=== PATIENT | female | born 1985 | race Two or more races ===

== ENCOUNTER 2024-11-24 06:27 | Inpatient (IN) | payer MEDICAID ==
[~2024-11-24] VITALS: Ht 167.6 cm; Wt 90.7 kg
--- NOTE | 2024-11-24 06:52 | ED.PDOC ---
HPI (NEURO) HPI Comments 39 y/o F, with no prior neurological history, CRUZ presents to the ED for CC of s/p seizure. EMS reports, patient is coming from home where called d/t patient displaying tonic clonic seizure like activity while sleeping, lasting approximately 3-4 minutes. EMS relays, upon arrival to scene patient was found to be A&Ox2 to person and place only. Upon arrival to the ED, patient is A&Ox3 to person, place, and event; unable to recall year. Patient has left oral trama following, episode. Patient denies headache, nausea, vomiting, or incontinence. No other associated symptoms, modifiers, recent injuries or sick contacts present at this time. Time Seen by MD: 06:40 Reviewed Notes: Nurses Notes, Medications, Allergies Information Source: Patient Mode of Arrival: EMS Severity: Moderate Headache Severity: None Timing: Minutes Duration: Minutes Prehospital treatment: None Seizure Quality: Tonic-clonic Seizure Location: Generalized Onset: At rest Circumstances: Spontaneous Symptoms: None Before: Normal During: Trauma: Tongue After: Confusion History of: None Modifying factors: Nothing Associated Signs and Symptoms: None Past Medical History PAST MEDICAL HISTORY: Denies Surgical History: Denies all surgeries CONTENT DEVELOPMENT SPECIALIST History: No Pertinent CONTENT DEVELOPMENT SPECIALIST History Family History Family History: Unknown Social History Smoker: Non-Smoker Alcohol: Denies ETOH Use Drugs: Denies Drug Use Lives In: Home Constitutional: denies: chills, diaphoresis, fatigue, fever, malaise, sweats, weakness, others EENTM: denies: blurred vision, double vision, ear bleeding, ear discharge, ear drainage, ear pain, ear ringing, eye pain, eye redness, hearing loss, mouth pain, mouth swelling, nasal discharge, nose bleeding, nose congestion, nose pain, photophobia, tearing, throat pain, throat swelling, voice changes, others Respiratory: denies: cough, hemoptysis, orthopnea, SOB at rest, shortness of breath, SOB with excertion, stridor, wheezing, others Cardiovascular: denies: chest pain, dizzy spells, diaphoresis, Dyspnea on exertion, edema, irregular heart beat, left arm pain, lightheadedness, palpitations, PND, syncope, others Gastrointestinal: denies: abdomen distended, abdominal pain, blood streaked bowels, constipated, diarrhea, dysphagia, difficulty swallowing, hematemesis, melena, nausea, poor appetite, poor fluid intake, rectal bleeding, rectal pain, vomiting, others Genitourinary: denies: abnormal vagina bleeding, burning, dyspareunia, dysuria, flank pain, frequency, hematuria, incontinence, pain, , vagina discharge, urgency, others Neurological: reports: seizure; denies: dizziness, fainting, headache, left sided numbness, left sided weakness, numbness, paresthesia, pre-existing deficit, right sided numbness, right sided weakness, speech problems, tingling, tremors, weakness, others Musculoskeletal: denies: back pain, gout, joint pain, joint swelling, muscle pain, muscle stiffness, neck pain, others Integumetry: denies: bruises, change in color, change in hair/nails, dryness, laceration, lesions, lumps, rash, wounds, others Allergic/Immunocompromised: denies: Difficulty Healing, Frequent Infections, Hives, Itching, others Hematologic/Lymphatic: denies: anemia, blood clots, easy bleeding, easy bruising, swollen glands, others Endocrine: denies: excessive hunger, excessive sweating, excessive thirst, excessive urination, flushing, intolerance to cold, intolerance to heat, unexplained weight gain, unexplained weight loss, others Psychiatric: denies: anxiety, bipolar disorder, depression, hopeless, panic disorder, schizophrenia, sleepless, suicidal, others All Other Systems: Reviewed and Negative Physical Exam General Appearance: Moderate Distress HEENT: Normal ENT Inspection, Pharynx Normal, TMs Normal Neck: Full Range of Motion, Non-Tender, Normal, Normal Inspection Respiratory: Chest Non-Tender, Lungs Clear, No Accessory Muscle Use, No R espiratory Distress, Normal Breath Sounds Cardiovascular: No Edema, No JVD, No Murmur, No Gallop, Normal Peripheral Pulses, Regular Rate/Rhythm Breast Exam: Deferred Gastrointestinal: No Organomegaly, Non Tender, No Pulsatile Mass, Normal Bowel Sounds, Soft Genitalia: Deferred Pelvic: Deferred Rectal: Deferred Extremities: No calf tenderness, Normal capillary refill, Normal inspection, Normal range of motion, Non-tender, No pedal edema Musculoskeletal : Apperance: Normal Neurologic: Disoriented Cerebellar Function: NOT DONE Reflexes: NOT DONE Skin: Bruises (Left lateral aspect of the tongue) Peripheral Pulses: 3+ Radial (R), 3+ Radial (L) Lymphatic: No Adenopathy Was a procedure done? Was a procedure done?: No Differential Diagnosis (SZ) Seizure: Psychogenic Seizure, Closed Head Injury, CVA/TIA, Epilepsy-Break Through, Epilepsy-Status Headache: N/A X-Ray, Labs, Meds, VS Vital Signs Date Time Temp Pulse Resp B/P (MAP) Pulse Ox O2 Delivery O2 Flow Rate FiO2 11/24/24 08:00 98.5 75 18 120/79 (93) 98 98.5 11/24/24 07:30 75 18 98 Room Air* 0 21 11/24/24 07:03 88 12 97 Room Air* 0 21 11/24/24 07:01 97.9 88 12 120/79 (93) 97 97.9 11/24/24 06:30 97.7 90 16 128/81 (97) 98 97.7 Lab Test 11/24/24 06:56 Range/Units White Blood Count 6.0 4.4-10.8 10^3/uL Red Blood Count 4.72 4.0-5.20 10^6/uL Hemoglobin 13.8 12.2-16.2 g/dL Hematocrit 39.8 36.0-46.0 % Mean Corpuscular Volume 84.3 80.0-100.0 fL Mean Corpuscular Hemoglobin 29.3 28.0-32.0 pg Mean Corpuscular Hemoglobin Concent 34.7 32.0-36.0 g/dL Red Cell Distribution Width 15.0 H 11.8-14.3 % Platelet Count 275 140-450 10^3/uL Mean Platelet Volume 8.4 6.9-10.8 fL Neutrophils (%) (Auto) 55.8 37.0-80.0 % Lymphocytes (%) (Auto) 34.4 10.0-50.0 % Monocytes (%) (Auto) 6.3 0.0-12.0 % Eosinophils (%) (Auto) 3.1 0.0-7.0 % Basophils (%) (Auto) 0.4 0.0-2.0 % Neutrophils # (Auto) 3.3 1.6-8.6 10 ^3/uL Lymphocytes # (Auto) 2.1 0.4-5.4 10 ^3/uL Monocytes # (Auto) 0.4 0-1.3 10 ^3/uL Eosinophils # (Auto) 0.2 0-0.8 10 ^3/uL Basophils # (Auto) 0 0-0.2 10 ^3/uL Nucleated Red Blood Cells 0.1 % Sodium Level 139 136-145 mmol/L Potassium Level 4.0 3.5-5.1 mmol/L Chloride Level 103 98-107 mmol/L Carbon Dioxide Level 28 20-31 mmol/L Anion Gap 8 5-15 Blood Urea Nitrogen 8 L 9-23 mg/dL Creatinine 0.68 0.550-1.02 mg/dL Glomerular Filtration Rate Calc 113 >90 mL/min BUN/Creatinine Ratio 11.8 10.0-20.0 Serum Glucose 87 74-106 mg/dL Calcium Level 10.0 8.7-10.4 mg/dL Current Medications Medications (Trade) Dose Ordered Sig/Marily Route Start Time Stop Time Status Last Admin Sodium Chloride 1,000 ml @ 1,000 mls/hr Q1H ONCE IV 11/24/24 06:45 11/24/24 07:44 DC 11/24/24 07:50 Patient is slightly disoriented. No history of seizure. Moving all extremities. Vitals stable. Has a abrasion of the lateral aspect of the tongue. Has no recollection of why she is here. Possible dehydration. Establish intravenous access. Was given fluids. Reviewed her history. Explained to the patient. Continue monitoring. [place] [id number] Ph: [phone] DIAGNOSTIC IMAGING Diagnostic Imaging Report : [id number] Signed PATIENT: CHANTAL LAWSON ACCT: [id number] UNIT: [id number] : 1985 LOC: ER ROOM / BED: / AGE / SEX: 39 / F ADM STATUS: REG ER SERVICE [id number] ORDERING PHYSICIAN: MARIVEL ANDERSON MD PROCEDURE(s): HWOCT - HEAD WITHOUT CONTRAST REASON: seizure ORDER NUMBER(s): [id number], ACCESSION NUMBER(s): [id number] EXAM: CT HEAD WITHOUT CONTRAST INDICATION: seizure TECHNIQUE: CT of the head without intravenous contrast. Radiation Dose : 1. Head: CT Dose: CTDI volume is 53.51 mGy. Dose-length product is 966.66 mGy*cm The dose indicators for CT are the volume Computed Tomography (CT) Dose Index (CTDIvol) and the Dose Length Product (DLP), and are measured in units of mGy and mGy-cm, respectively. These indicators are not patient dose, but values generated from the CT scanner acquisition factors. The report includes radiation exposure data for exposures received during this examination. COMPARISON: None FINDINGS: There is no evidence of acute intracranial hemorrhage, extra-axial collection, mass effect, midline shift, herniation or hydrocephalus. The ventricles, sulci and cisterns are age appropriate. The proctor-white differentiation is intact. The visualized paranasal sinuses and mastoid air cells are clear. The surrounding soft tissues and osseous structures are unremarkable. IMPRESSION: No acute intracranial abnormality. Radiation optimization: All CT scans at this facility use at least one of these dose optimization techniques: automated exposure control mA and/or kV adjustment per patient size (includes targeted exams where dose is matched to clinical indication) or iterative reconstruction. ATED BY: SAM RUIZ MD DICTATED DATE/TIME: 11/24/24 0753 SIGNED BY: SAM RUIZ MD SIGNED DATE/TIME: 11/24/24 0753 CC: Time of 1ST Reevaluation: 07:10 Reevaluation 1ST: Unchanged Patient Education/Counseling: Diagnosis, Treatment Family Education/Counseling: No Family Present Departure 1 Departure Time of Disposition: 07:04 Impression: Primary Impression: Metabolic encephalopathy Additional Impression: Seizure Disposition: 09 ADMITTED INPATIENT Admit to: Med Surg Condition: Guarded Critical Care Note Critical Care Time?: Yes (90 min-critical care time only) Critical care comment: Monitor for seizure activity Stability Stability form required: No Heart Score Heart Score: Heart Score Response (Comments) Value History N/A 0 EKG N/A 0 Age N/A 0 Risk Factors N/A 0 Troponin N/A 0 Total 0 I personally scribed for MARIVEL ANDERSON MD ([email or web address]) on 11/24/24 at 06:52. Electronically submitted by Janene Varghese ([email or web address]). I personally scribed for MARIVEL ANDERSON MD ([email or web address]) on 11/24/24 at 08:17. Electronically submitted by Janene Varghese ([email or web address]). I personally scribed for MARIVEL ANDERSON MD ([email or web address]) on 11/24/24 at 08:19. Electronically submitted by Janene Varghese ([email or web address]). MARIVEL ANDERSON MD Nov 24, 2024 06:52
[2024-11-24 07:03] VITALS: PULSE 88; RESP 12; O2SAT 97
[2024-11-24 07:06] LABS: Hematocrit 39.8 % (36.0-46.0); Hemoglobin 13.8 g/dL (12.2-16.2); Mean Corpuscular Hemoglobin 29.3 pg (28.0-32.0); Mean Corpuscular Volume 84.3 fL (80.0-100.0); Nucleated Red Blood Cells % 0.1 %
[2024-11-24 07:17] LABS: Chloride 103 mmol/L (98-107); Potassium 4.0 mmol/L (3.5-5.1); Sodium 139 mmol/L (136-145)
[2024-11-24 07:18] LABS: Anion Gap 8 (5-15); Calcium 10.0 mg/dL (8.7-10.4); Carbon Dioxide 28 mmol/L (20-31)
[2024-11-24 07:23] LABS: BUN/Creatinine Ratio 11.8 (10.0-20.0); Glucose 87 mg/dL (74-106)
[2024-11-24 07:26] LABS: Blood Urea Nitrogen 8 mg/dL (9-23)
[2024-11-24 07:30] VITALS: PULSE 75; RESP 18; O2SAT 98
[2024-11-24] MEDS: SODIUM CHLORIDE 0.9% 1,000 ML IV ONE (07:50)
--- NOTE | 2024-11-24 07:55 | DVH ---
EXAM: CT HEAD WITHOUT CONTRAST INDICATION: seizure TECHNIQUE: CT of the head without intravenous contrast. Radiation Dose : 1. Head: CT Dose: CTDI volume is 53.51 mGy. Dose-length product is 966.66 mGy*cm The dose indicators for CT are the volume Computed Tomography (CT) Dose Index (CTDIvol) and the Dose Length Product (DLP), and are measured in units of mGy and mGy-cm, respectively. These indicators are not patient dose, but values generated from the CT scanner acquisition factors. The report includes radiation exposure data for exposures received during this examination. COMPARISON: None FINDINGS: There is no evidence of acute intracranial hemorrhage, extra-axial collection, mass effect, midline s hift, herniation or hydrocephalus. The ventricles, sulci and cisterns are age appropriate. The proctor-white differentiation is intact. The visualized paranasal sinuses and mastoid air cells are clear. The surrounding soft tissues and osseous structures are unremarkable. IMPRESSION: No acute intracranial abnormality. Radiation optimization: All CT scans at this facility use at least one of these dose optimization ivonne hniques: automated exposure control mA and/or kV adjustment per patient size (includes targeted exam s where dose is matched to clinical indication) or iterative reconstruction.
[2024-11-24] MEDS: LORazepam 2MG/ML-1ML VIAL IV ONE (08:42)
[2024-11-24] MEDS ORDERED: NITROGLYCERIN 0.4 MG SL TAB SL PRN (09:30)
[2024-11-24] MEDS ORDERED: ONDANSETRON HCL 4 MG/2 ML VIAL IV PRN (09:30)
[2024-11-24] MEDS ORDERED: LORazepam 2MG/ML-1ML VIAL IV PRN (09:30)
[2024-11-24] MEDS ORDERED: DOCUSATE SOD 100 MG CAP PO PRN (09:30)
--- NOTE | 2024-11-24 09:39 | DVHHP2 ---
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 according to ED records and patient states she was sleeping and per her he heard her grunting he rolled over to look at her and he saw her hands in the air and she was shaking he has tried to wake her up she did not respond he tried to pick her up she is still unresponsive she also had bitten her tongue where she had some mouth bleeding he he stated this lasted about 3-5 minutes and then finally she was slumped over unresponsive so they called 911 patient states she do not remember what happened when the event occurred but she does remember being in the ambulance some waking up in the ambulance. Patient denies any history of seizures she denies any family history seizures. When evaluating patient's labs and imaging from ED Ativan was given normal saline CBC was unremarkable BNP was unremarkable CT scan of the brain was unremarkable with these findings we will admit and ask for Neurology evaluation Past Medical History See HPI above Past Surgical History See HPI above Family History Reviewed, non-contributory to the management of this case. Past Social History Patient does vape she also drank heavy on Monday but denies daily drinking or drug use Review of Systems Constitutional: No: Fever, Chills, Sweats, Weakness, Malaise, Other Eyes: No: Pain, Vision change, Conjunctivae inflammation, Eyelid inflammation, Other, Redness ENT: No: Ear pain, Ear discharge, Nose pain, Nose discharge, Nose congestion, Mouth pain, Mouth swelling, Throat pain, Throat swelling, Other Respiratory: No: Cough, Dry, Shortness of breath, SOB with excertion, Wheezing, Hemoptysis, Pleuritic Pain, Sputum, Wheezing, Other Cardiovascular: No: Chest Pain, Palpitations, Orthopnea, Paroxysmal Noc. Dyspnea, Edema, Lt Headedness, Other Gastrointestinal: No: Nausea, Vomiting, Abdominal Pain, Diarrhea, Constipation, Melena, Hematochezia, Other Genitourinary: No Dysuria, No Frequency, No Incontinence, No Hematuria, No Retention, No Other Musculoskeletal: No: other, neck pain, shoulder pain, arm pain, back pain, hand pain, leg pain, foot pain Neurological: No: Weakness, Numbness, Incoordination, Change in speech, Confusion, Seizures, Other Allergies: Coded Allergies: NO KNOWN ALLERGIES (Unverified , 10/27/12) Exam Vital Signs Vital Signs Date Time Temp Pulse Resp B/P (MAP) Pulse Ox O2 Delivery O2 Flow Rate FiO2 11/24/24 08:00 98.5 75 18 120/79 (93) 98 98.5 11/24/24 07:30 Room Air* 0 21 General Appearance: Alert, Oriented X3, Cooperative, No acute distress HEENT: Atraumatic, PERRLA, EOMI, Mucous membr. moist/pink, Other (HEENT tounge on left side no open wound no drainage seen no swelling airway patent ) Respiratory: Clear to auscultation, Normal air movement Cardiovascular: Regular rate, Normal S1, Normal S2, No murmurs Abdominal: Normal bowel sounds, Soft, No tenderness, No hepatospenomegaly, No masses Extremities: No clubbing, No cyanosis, No edema, Normal pulses, No tenderness/swelling Skin: No rashes, No breakdown, No significant lesion Neuro: Normal speech, Strength at 5/5 X4 ext, Normal tone, Sensation intact, Cranial nerves 3-12 NL Psych/Mental Status: Mental status NL, Mood NL Labs/Xrays CT scan of the brain unremarkable I reviewed labs, imaging CT scan abdomen pelvis, EKG and all diagnostic studies on this patient from ED records and the medical chart Labs Test 11/24/24 06:56 Range/Units White Blood Count 6.0 4.4-10.8 10^3/uL Red Blood Count 4.72 4.0-5.20 10^6/uL Hemoglobin 13.8 12.2-16.2 g/dL Hematocrit 39.8 36.0-46.0 % Mean Corpuscular Volume 84.3 80.0-100.0 fL Mean Corpuscular Hemoglobin 29.3 28.0-32.0 pg Mean Corpuscular Hemoglobin Concent 34.7 32.0-36.0 g/dL Red Cell Distribution Width 15.0 H 11.8-14.3 % Platelet Count 275 140-450 10^3/uL Mean Platelet Volume 8.4 6.9-10.8 fL Neutrophils (%) (Auto) 55.8 37.0-80.0 % Lymphocytes (%) (Auto) 34.4 10.0-50.0 % Monocytes (%) (Auto) 6.3 0.0-12.0 % Eosinophils (%) (Auto) 3.1 0.0-7.0 % Basophils (%) (Auto) 0.4 0.0-2.0 % Neutrophils # (Auto) 3.3 1.6-8.6 10 ^3/uL Lymphocytes # (Auto) 2.1 0.4-5.4 10 ^3/uL Monocytes # (Auto) 0.4 0-1.3 10 ^3/uL Eosinophils # (Auto) 0.2 0-0.8 10 ^3/uL Basophils # (Auto) 0 0-0.2 10 ^3/uL Nucleated Red Blood Cells 0.1 % Sodium Level 139 136-145 mmol/L Potassium Level 4.0 3.5-5.1 mmol/L Chloride Level 103 98-107 mmol/L Carbon Dioxide Level 28 20-31 mmol/L Anion Gap 8 5-15 Blood Urea Nitrogen 8 L 9-23 mg/dL Creatinine 0.68 0.550-1.02 mg/dL Glomerular Filtration Rate Calc 113 >90 mL/min BUN/Creatinine Ratio 11.8 10.0-20.0 Serum Glucose 87 74-106 mg/dL Calcium Level 10.0 8.7-10.4 mg/dL SEPSIS Sepsis Screen Date sepsis recognized/suspect: Nov 24, 2024 Time Sepsis recognized/suspect: 729 Recent Procedure: No On Antibiotic Therapy: No Respiratory Rate >20: No Heart Rate >90: No Temp<36 C (96.8 F) or >38.3 C: No SBP <90 or MAP <65 mmHG: No New Acute Mental Status Change: No Is the patient on CPAP, BIPAP,: No Physician Orders Head Without Contrast (11/24/24 06:38) Urinalysis (11/24/24 06:38) Vital Signs Date Time Temp Pulse Resp B/P (MAP) Pulse Ox O2 Delivery O2 Flow Rate FiO2 11/24/24 08:00 98.5 75 18 120/79 (93) 98 98.5 11/24/24 07:30 75 18 98 Room Air* 0 21 11/24/24 07:03 88 12 97 Room Air* 0 21 11/24/24 07:01 97.9 88 12 120/79 (93) 97 97.9 11/24/24 06:30 97.7 90 16 128/81 (97) 98 97.7 Laboratory Tests Test 11/24/24 06:56 White Blood Count 6.0 10^3/uL (4.4-10.8) Medications Medications Dose Ordered Sig/Marily Route Start Time Stop Time Status Last Admin Dose Admin Lorazepam 0.5 mg ONCE ONCE IV 11/24/24 08:30 11/24/24 08:31 DC 11/24/24 08:42 0.5 MG Sodium Chloride 1,000 ml @ 1,000 mls/hr Q1H ONCE IV 11/24/24 06:45 11/24/24 07:44 DC 11/24/24 07:50 1,000 MLS/HR Assessment/Plan Assessment/Plan Acute metabolic encephalopathy likely from seizure activity CT scan of the brain negative Patient more alert on exam Seizure precautions new onset seizure activity Patient declines any seizure activity ordered Ativan as needed for seizure activity CT scan of brain is negative ordered Neurology consult ordered Keppra Seizure precautions ordered Urine drug screen ordered RPR, EtOH level, tsh acute gerds protonix vapes enc abstinence fen/ppx diet ivf lovenox scd plan admit to tele neurology consult and seizure precautions Plan discussed with: Patient Date of Service: Nov 24, 2024 Billing Provider: CARLENE BARNEY DNP Common Visit Codes: [id number] INP/OBS CARE (HIGH) CARLENE BARNEY DNP Nov 24, 2024 09:39
[2024-11-24] MEDS: SODIUM CHLORIDE 0.9% 1,000 ML IV SCH (10:00)
[2024-11-24] MEDS: PANTOPRAZOLE 40 MG/10 ML VIAL INJ IV ONE (10:04)
[2024-11-24] MEDS: levETIRAcetam 1000 mg/100ml 100 ML IV ONE (10:04)
[2024-11-24 16:27] LABS: Urine Protein, UAD Negative (Negative); Urine WBC Clumps PRESENT /hpf (None Seen)
[2024-11-24 16:57] LABS: Amphetamine Screen, Urine Neg (NEGATIVE); Barbiturate Scree,Urine Neg (NEGATIVE); Benzodiazephine Screen, Urine Neg (NEGATIVE); Cannabinoid Screen, Urine Neg (NEGATIVE); Cocaine Screen, Urine Neg (NEGATIVE); Opiate Scree,Urine Neg (NEGATIVE); Phencyclidine Screen, Urine Neg (NEGATIVE)
[2024-11-24 17:02] VITALS: BP 116/72; PULSE 70; PULSE 74; RESP 16; TEMP 98.6; O2SAT 100
[2024-11-24 20:00] VITALS: PULSE 84; RESP 19; O2SAT 100
[2024-11-24 21:00] VITALS: BP 129/76; PULSE 79; RESP 19; TEMP 98.2; O2SAT 100
[2024-11-24] MEDS: levETIRAcetam 1000 mg/100ml 100 ML IV SCH (21:10)
[2024-11-25] VITALS (9 sets, daily range): BP systolic 103–124; BP diastolic 64–75; PULSE 65–83; RESP 17–20; TEMP 97.7–98.3; O2SAT 97–100
[2024-11-25 07:24] LABS: Hematocrit 30.6 % (36.0-46.0); Hemoglobin 10.8 g/dL (12.2-16.2); Mean Corpuscular Hemoglobin 29.9 pg (28.0-32.0); Mean Corpuscular Volume 84.3 fL (80.0-100.0); Nucleated Red Blood Cells % 0.1 %
[2024-11-25 07:35] LABS: Alanine Aminotransferase < 9 U/L (7-40); Albumin 3.4 g/dL (3.2-4.8); Alkaline Phosphatase 39 U/L (46-116); Anion Gap 8 (5-15); BUN/Creatinine Ratio 9.6 (10.0-20.0); Bilirubin, Total 0.4 mg/dL (0.2-1.0); Blood Urea Nitrogen 5 mg/dL (9-23); Calcium 8.8 mg/dL (8.7-10.4); Carbon Dioxide 24 mmol/L (20-31); Chloride 110 mmol/L (98-107); Glucose 81 mg/dL (74-106); Potassium 3.6 mmol/L (3.5-5.1); Sodium 142 mmol/L (136-145); Total Protein 5.4 g/dL (5.7-8.2)
[2024-11-25] MEDS: PANTOPRAZOLE 40 MG/10 ML VIAL INJ IV SCH (11:08)
[2024-11-25] MEDS: HYDROcodone-ACET 5/325MG TAB PO PRN (11:40)
[2024-11-25] MEDS: SODIUM CHLORIDE 0.9% 1,000 ML IV SCH (11:45)
--- NOTE | 2024-11-25 11:47 | DVHPN2 ---
Progress Note Date Seen: Nov 25, 2024 Medical Necessity Reason Pt with a Central, PICC or Fol: No Subjective Patient reports: No new complaints Review of Systems: HEENT:Normal, CVS:Normal, RESPIRATORY:Normal, GI:Normal, :Normal, MSK:Normal, NEURO:Normal Objective vital signs Vital Sign Date Time Temp Pulse Resp B/P (MAP) Pulse Ox O2 Delivery O2 Flow Rate FiO2 11/25/24 09:00 98.1 76 20 103/65 (78) 98 98.1 11/25/24 08:00 Room Air* 0 21 Total Intake and Output 11/24/24 11/24/24 11/25/24 15:00 23:00 07:00 Intake Total 1520 ml 120 ml 800 ml Balance 1520 ml 120 ml 800 ml medications Current Medications Medications Dose Ordered Sig/Marily Route Start Time Stop Time Status Last Admin Dose Admin Sodium Chloride 1,000 ml @ 120 mls/hr Q8H20M IV 11/24/24 09:30 11/25/24 11:30 120 MLS/HR Ondansetron HCl 4 mg Q4HP PRN IV 11/24/24 09:30 Docusate Sodium 100 mg BIDPRN PRN PO 11/24/24 09:30 Nitroglycerin 0.4 mg Q5MINP PRN SL 11/24/24 09:30 Levetiracetam 100 ml @ 400 mls/hr BID IV 11/24/24 22:00 11/25/24 11:09 400 MLS/HR Lorazepam 1 mg Q5MINP PRN IV 11/24/24 09:30 Pantoprazole Sodium 40 mg DAILY IV 11/25/24 10:00 11/25/24 11:08 40 MG Acetaminophen/ Hydrocodone Bitart 1 tab Q8HPRN PRN PO 11/25/24 01:30 11/25/24 11:40 1 TAB Examination: GENERAL:Normal, HEENT:Normal, NECK:Normal, LUNGS:Normal, CVS:Normal, ABDOMEN:Normal, MSK:Normal, SKIN:Normal, NEURO:Normal, :Normal laboratory and microbiology Laboratory Tests 11/25/24 05:59 Test 11/25/24 05:59 Range/Units Serum Glucose 81 74-106 mg/dL Problem List/Assessment/Plan Problem List/Assessment/Plan #1 new onset seizure: neuro eval #2 uti: culture, iv rocephin #3 obesity #4 h/o gi bleed/hemorrhoids advance care planning- full code- time spent 17 mins Plan discussed with: Patient Date of Service: Nov 25, 2024 Billing Provider: JULIO BUTCHER MD Common Visit Codes: [id number] INP/OBS CARE(HIGH) Secondary Visit Codes: [id number] CARE PLAN 30 MINUTES JULIO BUTCHER MD Nov 25, 2024 11:47
--- NOTE | 2024-11-25 12:22 | DVH ---
AP portable chest CLINICAL INDICATION: seizure FINDINGS: Heart size is normal. No infiltrates or effusions. No bony thoracic abnormalities. IMPRESSION: 1. Normal chest x-ray.
[2024-11-25] MEDS: cefTRIAXone 1GM/50ML D5W 50 ML IV ONE (12:25)
--- NOTE | 2024-11-25 20:51 | DVHINCON2 ---
Date of service: Nov 25, 2024 Referring Physician Torie Reason for Consultation Evaluation for acute new seizure History of Present Illness Ms. Watkins is a 39 years old right-handed female with a history of obesity, the patient was admitted to the [facility] on 11/24 24 with a chief c omplaint of seizure activity. At that time, she is alert, fully oriented, he remembers reading in her living room, but the next memory was waking up in the ambulance, confused, with biting to bilateral side of her tongue. The following information is based on interviewing her from her cell phone Around 5:30 a.m. on 11/24/2024, her woke up found her making noise, nonresponsive, with arms in the air, shaking in the arms and her body for about 1 minute, with blood in the mouth, he woke up confused. She has never had similar problem or seizure disorder previously, but from childhood, she has desert experience once monthly, he is found him smell nonexisting gas without confusion or altered mental status. She bumped head when she was young without altered mental status. No history of intracranial infection, no history of seizure disorder in the family She has good sleep, no recent acute illness Since 08/2024, every day she has aching pain shooting from the right hip/groin area, occasionally from the low back to the right lower extremity, without nurse move but movement does not improve or worsen the pain, the symptom is more intense when she is physically inactive, especially in the evening, with the urge to move, but physical activity does not not symptoms, as a result, it takes long time for her to fall asleep. She is not aware of anemia, iron deficiency on her She snores loud once a while Urinalysis, 11/24/2024: WBC: 5 mL 76, WBC clumps: Present, urine leukocyte esterase: 3+, urine nitrate: 2+ UDS, 10/2724: Negative Plasma alcohol, 11/24/2024: <3 CBC, 11/24/2024: Unremarkable CMP, 11/25/2024: Unremarkable Vitamin B12, 11/24/24: 213 TSH, 11/24/2024: 3.77 CT head, 11/24/2024: No acute intracranial abnormality Past Medical History No major medical problem, but since 2017, she has abdominal discomfort, abdominal pain, diarrhea Past Surgical History Family History: Cardiovascular disease G8 FATHER Cerebrovascular accident (CVA) G8 MOTHER G8 FATHER FH: dementia G8 FATHER Gout G8 FATHER Hypertension G8 FATHER Family History Hypertension, coronary artery disease, heart attack Social History She smokes, but denies a history of drug/alcohol abuse Allergies: Coded Allergies: NO KNOWN ALLERGIES (Unverified , 10/27/12) Current Medications Current Medications Medications (Trade) Dose Ordered Sig/Marily Route PRN Reason Start Time Stop Time Status Last Admin Levetiracetam 100 ml @ 400 mls/hr BID IV 11/24/24 22:00 11/25/24 11:09 Pantoprazole Sodium (Protonix) 40 mg DAILY IV 11/25/24 10:00 11/25/24 11:46 DC 11/25/24 11:08 Acetaminophen/ Hydrocodone Bitart ([place] 5/325MG Tab) 1 tab Q8HPRN PRN PO MODERATE PAIN (4-6 PAIN SCALE) 11/25/24 01:30 11/25/24 11:40 Sodium Chloride 1,000 ml @ 75 mls/hr [id number] IV 11/25/24 11:45 11/25/24 12:57 Ceftriaxone Sodium 50 ml @ 100 mls/hr DAILY@09 IV 11/26/24 09:00 Review of Systems As above, the other systems are negative Vital Signs Vital Signs Date Time Temp Pulse Resp B/P (MAP) Pulse Ox O2 Delivery O2 Flow Rate FiO2 11/25/24 19:53 66 11/25/24 16:36 98.0 18 118/71 (87) 100 98.0 11/25/24 08:00 Room Air* 0 21 Physical Exam GENERAL EXAM: General: the patient is well developed and nourished. No acute distress. HEENT: Normocephalic, neck is supple, no carotid bruits. No mass. RESPIRATORY: Normal respiratory effort with symmetrical lung expansion. Lungs clear to auscultation. CARDIOVASCULAR: Regular rate and rhythm with no murmurs. S1, S2. ABDOMEN: Soft, nontender, normal bowel sound MUSCULOSKELETAL EXAM: Tenderness to palpation in the lumbar spine NEUROLOGICAL: MENTAL STATUS: Awake and alert. Oriented to person, place, time and general circumstances. Able to give personal history. SPEECH, LANGUAGE, HIGHER CORTICAL FUNCTION: no aphasia or dysathria. CRANIAL NERVES: #2: Intact visual peralta to confrontation. The optic discs were sharp #3,4,6: Pupils are equal, round and reactive. EOMs full and conjugate. No nystagmus. #5: Facial sensation intact in all three divisions bilaterally. Mandibular strength intact. #7: Facial muscles symmetrical and strength intact. #8: Hearing grossly normal to voice. #9,10: Uvula and soft palate rise in the midline. Swallow and voice are normal. #11: Trapezius and sternomastoid strength intact bilaterally. #12: Tongue midline. No fasciculations or atrophy. SENSATION: Sensation to touch and pinprick is normal. MOTOR: Normal tone in the upper and lower extremity. Normal muscle bulk. No fasciculations. No abnormal movements or posturing. Muscle strength of the major groups in the upper extremities is 5/5. Muscle strength of the major groups in the lower extremities is 5/5. REFLEXES: Deep tendon reflexes normal and symmetrical. No pathological reflexes. CEREBELLAR/COORDINATION: Finger to nose and heel to boss are normal bilaterally. GAIT/STATION: deferred. Labs/Diagnostic Data Labs Test 11/25/24 05:59 11/24/24 15:20 11/24/24 06:56 Range/Units White Blood Count 6.9 4.4-10.8 10^3/uL Red Blood Count 3.63 L 4.0-5.20 10^6/uL Hemoglobin 10.8 #L 12.2-16.2 g/dL Hematocrit 30.6 #L 36.0-46.0 % Mean Corpuscular Volume 84.3 80.0-100.0 fL Mean Corpuscular Hemoglobin 29.9 28.0-32.0 pg Mean Corpuscular Hemoglobin Concent 35.5 32.0-36.0 g/dL Red Cell Distribution Width 15.1 H 11.8-14.3 % Platelet Count 211 140-450 10^3/uL Mean Platelet Volume 9.0 6.9-10.8 fL Neutrophils (%) (Auto) 61.8 37.0-80.0 % Lymphocytes (%) (Auto) 30.0 10.0-50.0 % Monocytes (%) (Auto) 5.2 0.0-12.0 % Eosinophils (%) (Auto) 2.6 0.0-7.0 % Basophils (%) (Auto) 0.4 0.0-2.0 % Neutrophils # (Auto) 4.2 1.6-8.6 10 ^3/uL Lymphocytes # (Auto) 2.1 0.4-5.4 10 ^3/uL Monocytes # (Auto) 0.4 0-1.3 10 ^3/uL Eosinophils # (Auto) 0.2 0-0.8 10 ^3/uL Basophils # (Auto) 0 0-0.2 10 ^3/uL Nucleated Red Blood Cells 0.1 % Sodium Level 142 136-145 mmol/L Potassium Level 3.6 3.5-5.1 mmol/L Chloride Level 110 H 98-107 mmol/L Carbon Dioxide Level 24 20-31 mmol/L Anion Gap 8 5-15 Blood Urea Nitrogen 5 L 9-23 mg/dL Creatinine 0.52 L 0.550-1.02 mg/dL Glomerular Filtration Rate Calc 120 >90 mL/min BUN/Creatinine Ratio 9.6 L 10.0-20.0 Serum Glucose 81 74-106 mg/dL Calcium Level 8.8 8.7-10.4 mg/dL Total Bilirubin 0.4 0.2-1.0 mg/dL Aspartate Amino Transferase (AST) 12 L 13-40 U/L Alanine Aminotransferase (ALT) < 9 7-40 U/L Alkaline Phosphatase 39 L 46-116 U/L Total Protein 5.4 L 5.7-8.2 g/dL Albumin 3.4 3.2-4.8 g/dL Beta HCG, Quantitative 0.5 L 1.5-4.2 mIU/mL Urine Color Colorless Yellow Urine Clarity Turbid H Clear Urine pH 6.5 5.0-9.0 Urine Specific [place] 1.014 1.001-1.035 Urine Protein Negative Negative Urine Ketones Negative Negative Urine Blood 1+ H Negative /uL Urine Nitrite 2+ H Negative Urine Bilirubin Negative Negative Urine Urobilinogen Normal Negative mg/dL Urine Leukocyte Esterase 3+ Negative /uL Urine RBC 17 0 - 4 /hpf Urine WBC Clumps Present None Seen /hpf Urine Microscopic WBC 576 H 0-5 /HPF Urine Squamous Epithelial Cells Few <5 /hpf Urine Bacteria None seen None Seen /hpf Urine Glucose Normal Normal mg/dL Urine Opiates Screen Neg NEGATIVE Urine Fentanyl Screen Neg NEGATIVE Urine Barbiturates Screen Neg NEGATIVE Urine Phencyclidine Screen Neg NEGATIVE Urine Amphetamines Screen Neg NEGATIVE Urine Benzodiazepines Screen Neg NEGATIVE Urine Cocaine Screen Neg NEGATIVE Urine Cannabinoids Screen Neg NEGATIVE Vitamin B12 Level 213 211-911 pg/mL Thyroid Stimulating Hormone (TSH) 3.77 0.55-4.78 uIU/mL Plasma/Serum Blood Alcohol < 3.0 <10 mg/dL Assessment New onset grand mal seizure Adelina vu experience Olfactory hallucination Paresthesia in the right lower extremity ? Restless leg syndrome ? Peripheral neuropathy Rule out iron deficiency Insomnia Low vitamin B12 Plan/Recommendation Monitoring Supportive treatment Telemetry Follow-up vitamin B12 Iron profile, ferritin EEG MRI brain scan Ativan for seizure breakthrough A trial of pramipexole 0.25 mg in the evening She has been advised not drive on she is cleared DMV report in the chart Prognosis: Poor This medical document was created using an electronic medical record system with [employer] dictation system. Although this document has been carefully reviewed, there may still be some phonetic and typographical errors. These areas are purely typographical due to imperfections of the software programs, and do not reflect any compromise in the patient's medical care. Plan discussed with: Patient, Spouse, Other JEFF OREILLY MD Nov 25, 2024 20:51
[2024-11-25] MEDS ORDERED: LORazepam 2MG/ML-1ML VIAL IV PRN (21:45)
[2024-11-26] VITALS (8 sets, daily range): BP systolic 119–127; BP diastolic 70–88; PULSE 60–87; RESP 16–18; TEMP 97.5–98.6; O2SAT 97–100
[2024-11-26] MEDS: cefTRIAXone 1GM/50ML D5W 50 ML IV SCH (08:48)
--- NOTE | 2024-11-26 11:07 | DVHPN2 ---
Progress Note - Dictate Date Seen: Nov 26, 2024 Medical Necessity Reason Pt with a Central, PICC or Fol: No Subjective Ms. Watkins is a 39 years old right-handed female with a history of obesity, the patient was admitted to the [facility] on 11/24 24 with a chief complaint of seizure activity. At that time, she is alert, fully oriented, he remembers reading in her living room, but the next memory was waking up in the ambulance, confused, with biting to bilateral side of her tongue. I have seen and examined the patient, discussed with her nurse, the case was discussed with Dr. Mims She is doing fine, no seizure activity Urinalysis, 11/24/2024: WBC: 5 mL 76, WBC clumps: Present, urine leukocyte esterase: 3+, urine nitrate: 2+ UDS, 10/2724: Negative Plasma alcohol, 11/24/2024: <3 CBC, 11/24/2024: Unremarkable CMP, 11/25/2024: Unremarkable Vitamin B12, 11/24/24: 213, TSH, 11/24/2024: 3.77 CT head, 11/24/2024: No acute intracranial abnormality vital signs Vital Sign Date Time Temp Pulse Resp B/P (MAP) Pulse Ox O2 Delivery O2 Flow Rate FiO2 11/26/24 08:48 98.0 73 18 124/72 (89) 98 98.0 11/26/24 08:00 Room Air* 0 21 Total Intake and Output 11/25/24 11/25/24 11/26/24 15:00 23:00 07:00 Intake Total 100 ml 1580 ml 1910 ml Balance 100 ml 1580 ml 1910 ml medications Current Medications Medications Dose Ordered Sig/Marily Route Start Time Stop Time Status Last Admin Dose Admin Ondansetron HCl 4 mg Q4HP PRN IV 11/24/24 09:30 Docusate Sodium 100 mg BIDPRN PRN PO 11/24/24 09:30 Nitroglycerin 0.4 mg Q5MINP PRN SL 11/24/24 09:30 Lorazepam 1 mg Q5MINP PRN IV 11/24/24 09:30 Acetaminophen/ Hydrocodone Bitart 1 tab Q8HPRN PRN PO 11/25/24 01:30 11/25/24 11:40 1 TAB Sodium Chloride 1,000 ml @ 75 mls/hr [id number] IV 11/25/24 11:45 11/25/24 12:57 75 MLS/HR Ceftriaxone Sodium 50 ml @ 100 mls/hr DAILY@09 IV 11/26/24 09:00 11/26/24 08:48 100 MLS/HR Lorazepam 1 mg ONCE PRN IV 11/25/24 21:45 objective General: the patient is well developed and nourished. No acute distress. MUSCULOSKELETAL EXAM: Tenderness to palpation in the lumbar spine MENTAL STATUS: Awake and alert. Oriented to person, place, time and general circumstances. Able to give personal history. SPEECH, LANGUAGE, HIGHER CORTICAL FUNCTION: no aphasia or dysathria. CRANIAL NERVES: Pupils are equal, round and reactive. EOMs full and conjugate. No nystagmus. Facial sensation intact in all three divisions bilaterally. Mandibular strength intact. Facial muscles symmetrical and strength intact. SENSATION: Sensation to touch and pinprick is normal. MOTOR: Normal tone in the upper and lower extremity. Normal muscle bulk. No fasciculations. No abnormal movements or posturing. Muscle strength of the major groups in the extremities is 5/5. REFLEXES: Deep tendon reflexes normal and symmetrical. No pathological reflexes. CEREBELLAR/COORDINATION: Finger to nose and heel to boss are normal bilaterally. GAIT/STATION: deferred laboratory and microbiology Laboratory Tests 11/25/24 05:59 Test 11/25/24 05:59 Range/Units Serum Glucose 81 74-106 mg/dL Problem List New onset grand mal seizure Adelina vu experience Olfactory hallucination Paresthesia in the right lower extremity ? Restless leg syndrome ? Peripheral neuropathy Rule out iron deficiency Insomnia Low vitamin B12 Assessment/Plan Monitoring Supportive treatment Telemetry Follow-up vitamin B12 Iron profile, ferritin EEG [facility] A trial of Keppra 500 mg b.i.d. A trial of pramipexole 0.25 mg in the evening Common seizure trigger discussed She has been advised not drive on she is cleared DMV report in the chart This medical document was created using an electronic medical record system with [employer] system. Although this document has been carefully reviewed, there may still be some phonetic and typographical errors. These areas are purely typographical due to imperfections of the software programs, and do not reflect any compromise in the patient's medical care. Prognosis poor Plan discussed with: Patient, Other Total Time (mins): 35 JEFF OREILLY MD Nov 26, 2024 11:07
[2024-11-26] MEDS: levETIRAcetam 500 MG TAB PO ONE (11:46)
--- NOTE | 2024-11-26 12:10 | DVHPN2 ---
Progress Note Date Seen: Nov 26, 2024 Medical Necessity Reason Pt with a Central, PICC or Fol: No Subjective Patient reports: No new complaints Review of Systems: HEENT:Normal, CVS:Normal, RESPIRATORY:Normal, GI:Normal, :Normal, MSK:Normal, NEURO:Normal Objective vital signs Vital Sign Date Time Temp Pulse Resp B/P (MAP) Pulse Ox O2 Delivery O2 Flow Rate FiO2 11/26/24 08:48 98.0 73 18 124/72 (89) 98 98.0 11/26/24 08:00 Room Air* 0 21 Total Intake and Output 11/25/24 11/25/24 11/26/24 15:00 23:00 07:00 Intake Total 100 ml 1580 ml 1910 ml Balance 100 ml 1580 ml 1910 ml medications Current Medications Medications Dose Ordered Sig/Marily Route Start Time Stop Time Status Last Admin Dose Admin Ondansetron HCl 4 mg Q4HP PRN IV 11/24/24 09:30 Docusate Sodium 100 mg BIDPRN PRN PO 11/24/24 09:30 Nitroglycerin 0.4 mg Q5MINP PRN SL 11/24/24 09:30 Lorazepam 1 mg Q5MINP PRN IV 11/24/24 09:30 Acetaminophen/ Hydrocodone Bitart 1 tab Q8HPRN PRN PO 11/25/24 01:30 11/25/24 11:40 1 TAB Sodium Chloride 1,000 ml @ 75 mls/hr [id number] IV 11/25/24 11:45 11/25/24 12:57 75 MLS/HR Ceftriaxone Sodium 50 ml @ 100 mls/hr DAILY@09 IV 11/26/24 09:00 11/26/24 08:48 100 MLS/HR Lorazepam 1 mg ONCE PRN IV 11/25/24 21:45 Levetiracetam 500 mg BID PO 11/26/24 22:00 Pramipexole Dihydrochloride 0.25 mg HS PO 11/26/24 22:00 Examination: GENERAL:Normal, HEENT:Normal, NECK:Normal, LUNGS:Normal, CVS:Normal, ABDOMEN:Normal, MSK:Normal, SKIN:Normal, NEURO:Normal, :Normal laboratory and microbiology Laboratory Tests 11/25/24 05:59 Test 11/25/24 05:59 Range/Units Serum Glucose 81 74-106 mg/dL Microbiology Date/Time Source Procedure Growth Status 11/25/24 20:46 Voided Urine Urine Culture - Preliminary Resulted Problem List/Assessment/Plan Problem List/Assessment/Plan #1 new onset seizure: neuro eval, mri brain, keppra #2 uti: culture, iv rocephin #3 obesity #4 h/o gi bleed/hemorrhoids advance care planning- full code- time spent 17 mins Plan discussed with: Patient Date of Service: Nov 26, 2024 Billing Provider: JULIO BUTCHER MD Common Visit Codes: [id number] INP/OBS CARE(HIGH) JULIO BUTCHER MD Nov 26, 2024 12:10
[2024-11-26 12:24] LABS: Total Iron Binding Capacity 299.0 ug/dL (250-425)
[2024-11-26 12:26] LABS: Iron 40.0 ug/dL (50-170)
[2024-11-26 12:45] LABS: Ferritin 31.2 ng/mL (10-291)
--- NOTE | 2024-11-26 13:45 | DVH ---
EXAM: MRI BRAIN HEAD WO CONTRAST CLINICAL HISTORY: sz COMPARISON: CT head 11/24/2024 TECHNIQUE: Multiplanar, multisequence magnetic resonance imaging of the brain was performed without intravenous contrast. FINDINGS: Normal brain volume and formation. No hemorrhages, masses, mass effect, midline shift, herniation or cytotoxic edema following large vas cular territory. No intra-axial or extra-axial fluid collections. No evidence of hydrocephalus. The basal cisterns are patent. The pituitary gland, sella and parasellar regions unremarkable. The cerebellar tonsils are normal po sition. The cerebellum is unremarkable. The bilateral hippocampus are relatively symmetric without abnormal T2 or FLAIR signal. The orbits and globes are unremarkable. The paranasal sinuses and mastoids are clear. There are no w orrisome calvarial lesions. IMPRESSION: No evidence of acute intracranial abnormalities.
[2024-11-26] MEDS: CYANOCOBALAMIN (B-12) 1000 MCG/1 ML VIAL SUBCUT ONE (14:34)
[2024-11-26] MEDS: PRAMIPEXOLE DIHYDROCHLORIDE MO 0.25 MG TAB PO SCH (21:37)
[2024-11-26] MEDS: levETIRAcetam 500 MG TAB PO SCH (21:37)
[2024-11-27 00:30] VITALS: BP 109/63; PULSE 83; RESP 18; TEMP 99.1; O2SAT 97
[2024-11-27 04:22] VITALS: BP 113/75; PULSE 69; RESP 18; TEMP 98.5; O2SAT 99
[2024-11-27 08:00] VITALS: PULSE 67
[2024-11-27 08:10] VITALS: PULSE 79; RESP 18; O2SAT 96
--- NOTE | 2024-11-27 10:39 | DVHDS2 ---
Discharge Summary Date of Admission Nov 24, 2024 at 09:25 Date of Discharge: Nov 27, 2024 Labs/Diagnostic Data: Laboratory Results Test 11/26/24 11:57 11/25/24 05:59 11/24/24 15:20 11/24/24 06:56 Iron Level 40 ug/dL (50-170) Total Iron Binding Capacity 299 ug/dL (250-425) Percent Iron Saturation 13.4 % (15-50) Ferritin 31.2 ng/mL (10-291) Vitamin B12 Level 242 pg/mL (211-911) White Blood Count 6.9 10^3/uL (4.4-10.8) Red Blood Count 3.63 10^6/uL (4.0-5.20) Hemoglobin 10.8 g/dL (12.2-16.2) Hematocrit 30.6 % (36.0-46.0) Mean Corpuscular Volume 84.3 fL (80.0-100.0) Mean Corpuscular Hemoglobin 29.9 pg (28.0-32.0) Mean Corpuscular Hemoglobin Concent 35.5 g/dL (32.0-36.0) Red Cell Distribution Width 15.1 % (11.8-14.3) Platelet Count 211 10^3/uL (140-450) Mean Platelet Volume 9.0 fL (6.9-10.8) Neutrophils (%) (Auto) 61.8 % (37.0-80.0) Lymphocytes (%) (Auto) 30.0 % (10.0-50.0) Monocytes (%) (Auto) 5.2 % (0.0-12.0) Eosinophils (%) (Auto) 2.6 % (0.0-7.0) Basophils (%) (Auto) 0.4 % (0.0-2.0) Neutrophils # (Auto) 4.2 10 ^3/uL (1.6-8.6) Lymphocytes # (Auto) 2.1 10 ^3/uL (0.4-5.4) Monocytes # (Auto) 0.4 10 ^3/uL (0-1.3) Eosinophils # (Auto) 0.2 10 ^3/uL (0-0.8) Basophils # (Auto) 0 10 ^3/uL (0-0.2) Nucleated Red Blood Cells 0.1 % Sodium Level 142 mmol/L (136-145) Potassium Level 3.6 mmol/L (3.5-5.1) Chloride Level 110 mmol/L (98-107) Carbon Dioxide Level 24 mmol/L (20-31) Anion Gap 8 (5-15) Blood Urea Nitrogen 5 mg/dL (9-23) Creatinine 0.52 mg/dL (0.550-1.02) Glomerular Filtration Rate Calc 120 mL/min (>90) BUN/Creatinine Ratio 9.6 (10.0-20.0) Serum Glucose 81 mg/dL (74-106) Calcium Level 8.8 mg/dL (8.7-10.4) Total Bilirubin 0.4 mg/dL (0.2-1.0) Aspartate Amino Transferase (AST) 12 U/L (13-40) Alanine Aminotransferase (ALT) < 9 U/L (7-40) Alkaline Phosphatase 39 U/L (46-116) Total Protein 5.4 g/dL (5.7-8.2) Albumin 3.4 g/dL (3.2-4.8) Beta HCG, Quantitative 0.5 mIU/mL (1.5-4.2) Urine Color Colorless (Yellow) Urine Clarity Turbid (Clear) Urine pH 6.5 (5.0-9.0) Urine Specific [place] 1.014 (1.001-1.035) Urine Protein Negative (Negative) Urine Ketones Negative (Negative) Urine Blood 1+ /uL (Negative) Urine Nitrite 2+ (Negative) Urine Bilirubin Negative (Negative) Urine Urobilinogen Normal mg/dL (Negative) Urine Leukocyte Esterase 3+ /uL (Negative) Urine RBC 17 /hpf (0 - 4) Urine WBC Clumps Present /hpf (None Seen) Urine Microscopic WBC 576 /HPF (0-5) Urine Squamous Epithelial Cells Few /hpf (<5) Urine Bacteria None seen /hpf (None Seen) Urine Glucose Normal mg/dL (Normal) Urine Opiates Screen Neg (NEGATIVE) Urine Fentanyl Screen Neg (NEGATIVE) Urine Barbiturates Screen Neg (NEGATIVE) Urine Phencyclidine Screen Neg (NEGATIVE) Urine Amphetamines Screen Neg (NEGATIVE) Urine Benzodiazepines Screen Neg (NEGATIVE) Urine Cocaine Screen Neg (NEGATIVE) Urine Cannabinoids Screen Neg (NEGATIVE) Thyroid Stimulating Hormone (TSH) 3.77 uIU/mL (0.55-4.78) Plasma/Serum Blood Alcohol < 3.0 mg/dL (<10) Other Laboratory Tests 11/25/24 05:59 Brief Hx & Hospital Course: see dictated note Condition at Discharge: Fair Final Diagnosis/Problems List seizure Discharge Disposition: Home Discharge Instruct/Medications Diet: Cardiac 2g Na,low cholest Activity: No Restrictions, As Tolerated Follow Up/Referral: fu with pcp/dr Sotelo Medications: script to pharmacy Discharge Statement: "Patient was advised to return to the ER or call 911 if any headaches, dizziness, shortness of breath, chest pain, abdominal pain, bleeding, fevers, or worsening of medical condition. Patient was counseled about treatment plan, medications, possible side effects, patientverbalized understanding. All questions were answered to the best of my ability. This discharge took greater then 30 minutes in planning, reviewing documentation, counseling the patient, and discussing with other team members." ASSESSMENT ASSESSMENT Assessment seizure Date of Service: Nov 27, 2024 Billing Provider: JULIO BUTCHER MD Common Visit Codes: 64593-ERA/OBS DISCH DAY >30min JULIO BUTCHER MD Nov 27, 2024 10:39
[2024-11-27] MEDS ORDERED: CYAN500T25 PO (10:42)
[2024-11-27] MEDS ORDERED: PRAM0.373 PO (10:42)
[2024-11-27] MEDS ORDERED: FERR325T24 PO (10:42)
[2024-11-27] MEDS ORDERED: LEVE500T40 PO (10:42)
[2024-11-27] MEDS ORDERED: CEFU250T68 PO (10:46)
[2024-11-27] MEDS: CYANOCOBALAMIN 500 MCG TAB PO SCH (10:49)
--- NOTE | 2024-11-27 10:57 | DVHDS ---
DATE OF DISCHARGE: 11/27/2024 HISTORY OF PRESENT ILLNESS: The patient is a 39-year-old lady who is admitted with history of altered level of consciousness and seizure activity. The patient has history of GERD and hemorrhoids. HOSPITAL COURSE: The patient had a brain MRI that was unremarkable. She was seen in neurology consult by Dr. Sotelo and was started on treatment with Keppra. The patient was iron deficient and was started on oral treatment with iron. The patient's B12 level was 242 and she was started on vitamin B12. She had evidence of UTI and her tox screen was negative. The patient will now be discharged to be on Keppra 500 mg p.o. b.i.d., vitamin B12 500 mcg daily, pramipexole 0.25 mg at bedtime, Ceftin 250 mg b.i.d. for 5 days, and ferrous sulfate 325 mg daily. She will follow up with Dr. Sotelo and her primary in the next 1-2 weeks. FINAL DIAGNOSES: * New-onset seizure. * UTI. * Obesity. * Iron deficiency. * Questionable vitamin B12 deficiency. * History of hemorrhoids. * Likely, restless leg syndrome. Time spent in discharge planning and review of plan with the patient and nursing was 38 minutes. MD TRUPTI Waite/CHUY TID: [id number] RECEIPT: [id number]
--- NOTE | 2024-11-27 11:03 | DVHPN2 ---
Progress Note - Dictate Date Seen: Nov 27, 2024 Medical Necessity Reason Pt with a Central, PICC or Fol: No Subjective MsMayi Watkins is a 39 years old right-handed female with a history of obesity, the patient was admitted to the [facility] on 11/24 24 with a chief complaint of seizure activity. At that time, she is alert, fully oriented, he remembers reading in her living room, but the next memory was waking up in the ambulance, confused, with biting to bilateral side of her tongue. I have seen and examined the patient, discussed with her nurse, the case was discussed with Dr. Mims She is doing fine, no seizure activity Her sleep was better with pramipexole Urinalysis, 11/24/2024: WBC: 5 mL 76, WBC clumps: Present, urine leukocyte esterase: 3+, urine nitrate: 2+ UDS, 10/2724: Negative Plasma alcohol, 11/24/2024: <3 CBC, 11/24/2024: Unremarkable CMP, 11/25/2024: Unremarkable Vitamin B12, 11/24/24: 213, 11/27/2023: 242 TSH, 11/24/2024: 3.77 Iron/TIBC/Sat, 11/25/2024: 40/299/13.4 Ferritin, 11/26/2024: 31.2 CT head, 11/24/2024: No acute intracranial abnormality MR head, 11/26/2024: No evidence of acute intracranial abnormalities vital signs Vital Sign Date Time Temp Pulse Resp B/P (MAP) Pulse Ox O2 Delivery O2 Flow Rate FiO2 11/27/24 04:22 98.5 69 18 113/75 (88) 99 98.5 11/26/24 20:00 Room Air* 0 21 Total Intake and Output 11/26/24 11/26/24 11/27/24 15:00 23:00 07:00 Intake Total 50 ml 900 ml 1300 ml Balance 50 ml 900 ml 1300 ml medications Current Medications Medications Dose Ordered Sig/Marily Route Start Time Stop Time Status Last Admin Dose Admin Ondansetron HCl 4 mg Q4HP PRN IV 11/24/24 09:30 Docusate Sodium 100 mg BIDPRN PRN PO 11/24/24 09:30 Nitroglycerin 0.4 mg Q5MINP PRN SL 11/24/24 09:30 Lorazepam 1 mg Q5MINP PRN IV 11/24/24 09:30 Acetaminophen/ Hydrocodone Bitart 1 tab Q8HPRN PRN PO 11/25/24 01:30 11/25/24 11:40 1 TAB Sodium Chloride 1,000 ml @ 75 mls/hr [id number] IV 11/25/24 11:45 11/27/24 03:45 75 MLS/HR Ceftriaxone Sodium 50 ml @ 100 mls/hr DAILY@09 IV 11/26/24 09:00 11/27/24 10:51 100 MLS/HR Lorazepam 1 mg ONCE PRN IV 11/25/24 21:45 Levetiracetam 500 mg BID PO 11/26/24 22:00 11/27/24 10:49 500 MG Pramipexole Dihydrochloride 0.25 mg HS PO 11/26/24 22:00 11/26/24 21:37 0.25 MG Cyanocobalamin 500 mcg DAILY PO 11/27/24 10:00 11/27/24 10:49 500 MCG objective General: the patient is well developed and nourished. No acute distress. MUSCULOSKELETAL EXAM: Tenderness to palpation in the lumbar spine MENTAL STATUS: Awake and alert. Oriented to person, place, time and general circumstances. Able to give personal history. SPEECH, LANGUAGE, HIGHER CORTICAL FUNCTION: no aphasia or dysathria. CRANIAL NERVES: Pupils are equal, round and reactive. EOMs full and conjugate. No nystagmus. Facial sensation intact in all three divisions bilaterally. Mandibular strength intact. Facial muscles symmetrical and strength intact. SENSATION: Sensation to touch and pinprick is normal. MOTOR: Normal tone in the upper and lower extremity. Normal muscle bulk. No fasciculations. No abnormal movements or posturing. Muscle strength of the major groups in the extremities is 5/5. REFLEXES: Deep tendon reflexes normal and symmetrical. No pathological reflexes. CEREBELLAR/COORDINATION: Finger to nose and heel to boss are normal bilaterally. GAIT/STATION: deferred laboratory and microbiology Laboratory Tests 11/25/24 05:59 Test 11/25/24 05:59 Range/Units Serum Glucose 81 74-106 mg/dL Problem List New onset grand mal seizure Adelina vu experience Olfactory hallucination Paresthesia in the right lower extremity Restless leg syndrome ? Peripheral neuropathy Iron deficiency Insomnia Low vitamin B12 Assessment/Plan Monitoring Supportive treatment Telemetry EEG, okay as outpatient MRI brain scan Ativan for seizure breakthrough Keppra 500 mg b.i.d. Pramipexole 0.25 mg in the evening Common seizure trigger discussed She has been advised not drive on she is cleared DMV report in the chart She is to follow up with me in the office, she has my contact information This medical document was created using an electronic medical record system with Zelgor dictation system. Although this document has been carefully reviewed, there may still be some phonetic and typographical errors. These areas are purely typographical due to imperfections of the software programs, and do not reflect any compromise in the patient's medical care. Prognosis poor Plan discussed with: Patient, Other Total Time (mins): 35 JEFF OREILLY MD Nov 27, 2024 11:03
[2024-11-27 13:47] VITALS: TEMP 36.9
--- NOTE | 2024-11-28 20:45 | DVHEEG2 ---
Neurology EEG Procedural Note Procedural Note EXAM DATE: 11/26/24 REFERRING DOCTOR: Dr. Oreilly TECHNIQUE: Eighteen channels of EEG, 2 channels of EOG, and 1 channel of EKG were recorded using the International 10/20 system. CLINICAL DATA: The patient was referred for an EEG evaluation for the evidence of seizure disorder. MEDICATIONS: See chart BACKGROUND ACTIVITY: While the patient was awake, the background activity consisted of well regulated 9-10 Hz rhythmic waveforms, symmetrically distributed over both posterior quadrants and was reactive to eye opening. ACTIVATION: Hyperventilation: Not done Photic Stimulation: Not done Sleep: Stage I & II IMPRESSION: This is a normal EEG. No focal, lateralized, or epileptiform f eatures are noted. If clinically indicated to rule out a seizure disorder, recommend repeat EEG with sleep deprivation. The EKG channel showed a regular heart rate of 72 per minute. [place] [address]. JEFF OREILLY MD Nov 28, 2024 20:45
== END 2024-11-27 16:00 | disposition home or self-care (01) | DRG 53 ==
LOC: ER 06:27 → EDBD 06:27 → OVERFLOW 09:25 → TELE-WESTW 16:57 → WEST WING 11-26 02:27
PROVIDERS: ADMIT Internal Medicine; ATTEND Internal Medicine
DX: G40.409 Other generalized epilepsy and epileptic syndromes, not intractable, without status epilepticus (principal); D62 Acute posthemorrhagic anemia; E53.8 Deficiency of other specified B group vitamins; G25.81 Restless legs syndrome; G47.00 Insomnia, unspecified; N39.0 Urinary tract infection, site not specified; K21.9 Gastro-esophageal reflux disease without esophagitis; F17.290 Nicotine dependence, other tobacco product, uncomplicated; E66.9 Obesity, unspecified; Z68.32 Body mass index [BMI] 32.0-32.9, adult; Z82.49 Family history of ischemic heart disease and other diseases of the circulatory system; Z82.3 Family history of stroke; Z98.891 History of uterine scar from previous surgery; Z81.8 Family history of other mental and behavioral disorders; Z79.899 Other long term (current) drug therapy
CPT/HCPCS: 36415; 70450; 70551; 71045; 80048; 80053; 80307; 80320; 81001; 82607; 82728; 83540; 83550; 84443; 84702; 85025; 87086; 95819; 96361; 96374; 99291; 99292; G0378; J2470

== ENCOUNTER 2025-04-28 22:59 | Emergency (ER) | payer MEDICAID ==
[~2025-04-28] VITALS: Ht 154.9 cm; Wt 82.6 kg
[~2025-04-28 22:59] MED LIST: CEFU250T68 PO; CYAN500T25 PO; FERR325T24 PO; LEVE500T40 PO; PRAM0.373 PO
[2025-04-28 23:40] VITALS: BP 120/83; TEMP 97.6
[2025-04-28 23:48] VITALS: PULSE 96; RESP 16; O2SAT 100
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
--- NOTE | 2025-04-29 00:33 | DVH ---
CLINICAL INDICATION: facial pain TECHNIQUE: XYXY NASAL BONES 3+VIEWS COMPARISON: None FINDINGS/IMPRESSION: : Age-indeterminate fracture of the base of the nasal bones. Otherwise no significant abnormality. Paranasal sinuses and mastoid air cells are clear.
== END 2025-04-29 01:13 | disposition home or self-care (01) ==
LOC: ER 22:59
DX: S00.33XA Contusion of nose, initial encounter (principal); Z79.899 Other long term (current) drug therapy; W50.1XXA Accidental kick by another person, initial encounter; Y93.89 Activity, other specified; Y92.89 Other specified places as the place of occurrence of the external cause; Y99.8 Other external cause status
CPT/HCPCS: 70160